=== PATIENT | female | born 1995 | race Caucasian/White ===

== ENCOUNTER 2017-04-28 02:02 | Emergency (ER) | payer OTHER ==
[~2017-04-28] VITALS: Ht 175.3 cm; Wt 106.6 kg
[2017-04-28] MEDS ORDERED: OMEPRAZOLE40 MG PO (02:33)
[2017-04-28] MEDS ORDERED: ONDANSETRON HCL4 MG PO (02:33)
[2017-04-28] MEDS ORDERED: FLUOXETINE HCL20 MG PO (02:34)
[2017-04-28] MEDS ORDERED: NORCO 5-325 TA1 EACH PO (05:34)
[2017-04-28] MEDS ORDERED: PROTONIX40 MG PO (05:34)
== END 2017-04-28 06:01 | disposition home or self-care (01) ==
LOC: ED 02:02
DX: R10.11 Right upper quadrant pain (principal); K21.9 Gastro-esophageal reflux disease without esophagitis; F41.9 Anxiety disorder, unspecified
CPT/HCPCS: 76705; 80053; 81001; 83690; 84703; 85025; 96374; 96375; 99284; J2270; J2405

== ENCOUNTER 2017-05-15 06:45 | Day surgery (SDC) | payer OTHER ==
[~2017-05-15] VITALS: Ht 175.3 cm; Wt 63.5 kg
[~2017-05-15 06:45] MED LIST: FLUOXETINE HCL20 MG PO; NORCO 5-325 TA1 EACH PO; OMEPRAZOLE40 MG PO; ONDANSETRON HCL4 MG PO; PROTONIX40 MG PO
[2017-05-15] MEDS ORDERED: IBUPROFEN600 MG PO (10:18)
[2017-05-15] MEDS ORDERED: OXYCODON-ACETA1 EAC2 PO (10:19)
[2017-05-15] MEDS ORDERED: MAPAP325 MG PO (10:19)
--- NOTE | 2017-05-15 10:25 | NUR ---
05/15/17 1025 Mony Martinez 1006-PATIENT ARRIVED TO PACU ON 6L MASK O2 SAT 100% NONAROUSABLE RN HOLDING AIRWAY. 4 LAP SITES TO ABDOMEN CDI 1017-PATIENT AROUSING TO VERBAL STIMULI OPENING EYES ABLE TO MAINTAIN OPEN AIRWAY. SUCTIONED BY OCULAR CARE AIDE. 1020-ORAL AIRWAY REMOVED. PATIENT COUGHING. HOB SAT UP. PATIENT MOVING HEAD AROUND. DISORIENTED.
--- NOTE | 2017-05-15 11:01 | NUR ---
FAMILY @ BS. CALL LIGHT W/IN REACH. ICED WATER GIVEN.
--- NOTE | 2017-05-15 11:08 | NUR ---
PT REQ EMESIS BAG AND REPORTS "I'M GOING TO PUKE". DR. MANJARREZ CALLED. NEW ORDER RECEIVED.
--- NOTE | 2017-05-15 11:14 | NUR ---
HARD COPY PRESCRIPTION GIVEN TO PATIENT'S BOYFRIEND.
--- NOTE | 2017-05-15 12:00 | NUR ---
PT RESTING QUIETLY WITH EYES CLOSED. RR EVEN AND UNLABORED. PT WAKES EASILY TO RN'S VOICE AND RATES PAIN AND QUICKLY FALLS BACK TO SLEEP WHEN LEFT UNSTIMULATED.
--- NOTE | 2017-05-15 13:13 | NUR ---
PT AWAKE AND ALERT WHEN RN ENTERS THE ROOM. PATIENT REQ LUNCH. SANDWICH AND FRUIT ORDERED FROM DIETARY. FAMILY REMAINS @ BS. CRACKERS GIVEN TO PATIENT AND SHE EATS THOSE WITHOUT DIFFICULTY.
--- NOTE | 2017-05-15 14:04 | NUR ---
PT UP TO BR W/RN STANDBY. PT AMBULATES WELL AND DENIES DIZZINESS. PT VOIDS 200 ML CLEAR YELLOW URINE AND REQ DC HOME. PT ASSISTED DRESSED BY BOYFRIEND AND TOLERATES THAT WELL. VERBAL DC INSTRUCTIONS GIVEN TO PT AND HER BOYFRIEND AND THEY BOTH VERBALIZE UNDERSTANDING. PT TRANSFERS HERSELF WELL TO AND THEN PERSONAL VEHICLE.
--- NOTE | 2017-05-15 14:15 | NUR ---
PT ALERT, ORIENTED AND SUPPORTED BY HER CATRACHO VALENCIA. VERY FRIENDLY YOUNG COUPLE,WITH MILD ANXIETY ABOUT THE DAY. SPENT SOME TIME WITH THEM TALKING THEM THROUGH THE PROCESS. PT REQUESTED PRAYER, WILL FOLLOW NEEDED
--- NOTE | 2017-05-16 08:51 | OR ---
[facility] [address], [place] [address] Signed DATE OF OPERATION: 05/15/2017 SURGEON: Jessy Manjarrez MD PREOPERATIVE DIAGNOSIS: Chronic acalculous cholecystitis. POSTOPERATIVE DIAGNOSIS: Chronic acalculous cholecystitis. PROCEDURE: 1. Laparoscopic cholecystectomy with intraoperative cholangiogram. 2. Surgeon-directed fluoroscopy. ANESTHESIA: General endotracheal, Jeanne Ronal, BOOK SEWER and local 10 mL of 0.25% Marcaine with epinephrine. INDICATION: This 21-year-old white woman is a patient of Max Kang (formally SUJEY Baron), who has a very typical and classic symptoms of biliary colic including right subcostal and epigastric pain. Evaluation included a gallbladder ultrasound, which was normal and subsequently a CCK-HIDA test showing a 92% ejection fraction (normal), but marked reproduction of her right subcostal pain. She has very strong family history of cholecystitis including her twin sister, who has undergone cholecystectomy already as well as her mother and grandmother. Given the findings, I have recommended cholecystectomy. The risks of bleeding, infection, bile duct injury, need for open procedure, and of course failure to cure her symptoms have all been reviewed in detail. She understood and wished to proceed. FINDINGS: The gallbladder was chronically inflamed. It was somewhat floppy, but had a dull evans-green appearance. The liver itself was normal. Cholangiogram was normal with no sign of filling defect, biliary anomaly. The mucosa showed chronic inflammatory change. No sign of stones or neoplasm. DESCRIPTION OF PROCEDURE: The patient was brought to the operating room, given a general endotracheal anesthetic. Preoperative antibiotic Ancef was given, sequential compression device stockings used, and heparin subcutaneously administered. The abdomen was prepared with a chlorhexidine Electronically Signed By: JESSY MANJARREZ MD 05/16/17 0851 PATIENT NAME: FELECIA CLINTON OPERATIVE REPORT DATE OF : [birth year] PHYSICIAN: JESSY MANJARREZ MD REPORT #: [id number] REPORT IS CONFIDENTIAL AND NOT TO BE RELEASED WITHOUT AUTHORIZATION [facility] [address], [place] [address] Signed solution and draped sterilely. It was noted that she had a supraumbilical, infraumbilical, umbilical piercing for umbilical rings and these areas were avoided. Incision was made slightly inferior to the usual infraumbilical incision. Dissection carried through the subcutaneous tissue identifying the fascia and incising it and using an open Chelsie cannula technique, allowing for entry into the abdominal cavity. Pneumoperitoneum was achieved to a level of 14 mmHg with carbon dioxide gas. Intra-abdominal inspection showed no sign of ascites or carcinomatosis. The gallbladder appeared elongated, dull, green and chronically inflamed. The liver appeared normal. Three additional trocars were placed in usual configuration in the subxiphoid, right midclavicular, and right anterior axillary line. The gallbladder was elevated cephalad and retracted laterally. The common duct was easily identified given her thin body habitus. Using blunt and electrocautery dissection, the triangle of Calot was dissected free ultimately identifying well the cystic duct and the cystic artery. A clip was applied across the gallbladder cystic duct junction and a transverse choledochotomy made in the cystic duct. Retrograde milking of the cystic duct showed thick yellow bile, but no sign of stone. Using an Marie type cholangiocatheter, intraoperative cholangiography was undertaken showing free flow of contrast in the biliary tree with prompt emptying into the duodenum. There was no sign of biliary filling defect or other problem. Retrograde flow into the proximal biliary tree was noted to be normal as well. The catheter was removed and the cystic duct was triply clipped and divided. The gallbladder was dissected free in a retrograde fashion after applying clips to the arterial branches as necessary. The gallbladder was extracted through the infraumbilical port site without problem, opened on the back table, and found to have chronic inflammatory change. There was no sign of stone or neoplasm. Irrigation of the subhepatic space showed no sign of bile leak, bleeding, or other problems. Excess irrigation fluid was suctioned free. The trocars were removed under direct visualization showing no sign of bleeding. The infraumbilical fascial incision was carefully reapproximated with interrupted 0 Vicryl suture. All wounds copiously irrigated with saline solution and infiltration of 0.25% Marcaine with epinephrine and was undertaken at each site. The skin was closed with interrupted 3-0 Vicryl and Steri-Strips were applied. The patient was ultimately extubated and transported to recovery room in good condition having suffered no complication. Sponge, needle, instrument counts were reported as correct x3. MD MANDO White/MODL Electronically Signed By: JESSY MANJARREZ MD 05/16/17 0851 PATIENT NAME: FELECIA CLINTON OPERATIVE REPORT DATE OF : [birth year] PHYSICIAN: JESSY MANJARREZ MD REPORT #: [id number] REPORT IS CONFIDENTIAL AND NOT TO BE RELEASED WITHOUT AUTHORIZATION [address], [place] [address] Signed /[id number] cc: SUJEY Cuevas MD Electronically Signed By: JESSY MANJARREZ MD 05/16/17 0851 PATIENT NAME: FELECIA CLINTON NAN OPERATIVE REPORT DATE OF : [birth year] PHYSICIAN: JESSY MANJARREZ MD REPORT #: [id number] REPORT IS CONFIDENTIAL AND NOT TO BE RELEASED WITHOUT AUTHORIZATION
== END 2017-05-15 14:10 | disposition home or self-care (01) ==
LOC: DS 06:45
PROVIDERS: Surgery
PROC: BF13YZZ Fluoroscopy of Gallbladder and Bile Ducts using Other Contrast (ICD-10-PCS; 2017-05-15)
PROC: 0FT44ZZ Resection of Gallbladder, Percutaneous Endoscopic Approach (ICD-10-PCS; principal; 2017-05-15 08:15)
DX: K81.1 Chronic cholecystitis (principal); Z87.891 Personal history of nicotine dependence; Z90.89 Acquired absence of other organs; Z98.890 Other specified postprocedural states; Z83.79 Family history of other diseases of the digestive system; Z79.899 Other long term (current) drug therapy
CPT/HCPCS: 00790; 74300; J0131; J0690; J1100; J1644; J1885; J2250; J2405; J2550; J2704; J3010; J3475; J7120; Q9967